=== PATIENT | female | born 1990 | race Two or more races ===

== ENCOUNTER 2023-01-20 14:47 | Emergency (ER) | payer BC, OTHER ==
[~2023-01-20] VITALS: Ht 170.2 cm; Wt 72.8 kg
[2023-01-20 15:44] LABS: Urine Bacteria NONE SEEN /hpf (None Seen); Urine Blood Negative /uL (Negative); Urine Specific Gravity 1.004 (1.001-1.035); Urine WBC <1 /hpf (0 - 5)
[2023-01-20 15:53] LABS: Basophils # (auto) 0.1 10 ^3/uL (0-0.2); Basophils % (auto) 0.8 % (0.0-2.0); Eosinophils # (auto) 0.1 10 ^3/uL (0-0.8); Eosinophils % (auto) 2.1 % (0.0-7.0); Hematocrit 43.7 % (36.0-46.0); Hemoglobin 14.8 g/dL (12.2-16.2); Lymphocytes # (auto) 2.6 10 ^3/uL (0.4-5.4); Lymphocytes % (auto) 37.2 % (10.0-50.0); Mean Corpuscular Hemoglobin 30.1 pg (28.0-32.0); Mean Corpuscular Hgb Conc. 33.8 g/dL (32.0-36.0); Mean Corpuscular Volume 89.1 fL (80.0-100.0); Monocytes # (auto) 0.3 10 ^3/uL (0-1.3); Monocytes % (auto) 4.7 % (0.0-12.0); Neutrophils # (auto) 3.9 10 ^3/uL (1.6-8.6); Neutrophils % (auto) 55.2 % (37.0-80.0); Nucleated Red Blood Cells % 0.2 %; Red Cell Distribution Width 12.7 % (11.8-14.3)
[2023-01-20 15:59] LABS: Calcium 8.7 mg/dL (8.5-10.1); Potassium 4.4 mmol/L (3.5-5.1)
[2023-01-20 16:03] LABS: BUN/Creatinine Ratio 16.7 (10.0-20.0); Bilirubin, Total 0.2 mg/dL (0.2-1.0); Total Protein 7.2 g/dL (6.4-8.2)
[2023-01-20] MEDS ORDERED: IOHEXOL 300 MG/ML 100ML BOTTLE IJ ONE (16:28)
[2023-01-20] MEDS ORDERED: SODIUM CHLORIDE 0.9% 1,000 ML IV ONE (18:45)
[2023-01-20] MEDS ORDERED: PANTOPRAZOLE 40 MG/10 ML VIAL INJ IV ONE (18:45)
[2023-01-20 21:19] LABS: Basophils # (auto) 0 10 ^3/uL (0-0.2); Basophils % (auto) 0.5 % (0.0-2.0); Eosinophils # (auto) 0.2 10 ^3/uL (0-0.8); Eosinophils % (auto) 2.1 % (0.0-7.0); Hemoglobin 14.4 g/dL (12.2-16.2); Lymphocytes % (auto) 36.6 % (10.0-50.0); Mean Corpuscular Hemoglobin 29.6 pg (28.0-32.0); Mean Corpuscular Hgb Conc. 33.6 g/dL (32.0-36.0); Mean Corpuscular Volume 88.3 fL (80.0-100.0); Monocytes # (auto) 0.4 10 ^3/uL (0-1.3); Monocytes % (auto) 5.1 % (0.0-12.0); Neutrophils # (auto) 4.5 10 ^3/uL (1.6-8.6); Neutrophils % (auto) 55.7 % (37.0-80.0); Nucleated Red Blood Cells % 0.1 %; Red Blood Cells 4.87 10^6/uL (4.0-5.20); Red Cell Distribution Width 12.6 % (11.8-14.3); White Blood Cell 8.1 10^3/uL (4.4-10.8)
[2023-01-20 22:33] VITALS: BP 121/64
== END 2023-01-20 22:34 | disposition home or self-care (01) ==
LOC: ER 14:47
DX: K92.1 Melena (principal); R10.2 Pelvic and perineal pain
CPT/HCPCS: 36415; 74177; 80053; 81001; 81025; 82270; 83605; 83690; 84702; 85025; 85048; 86850; 86900; 86901; 93005; 96361; 96374; 99285; C9113; J7030; Q9967

== ENCOUNTER 2023-09-12 04:29 | Emergency (ER) | payer BC ==
[~2023-09-12] VITALS: Ht 170.2 cm; Wt 70.4 kg
[2023-09-12 04:40] VITALS: BP 123/57; PULSE 98; TEMP 98.2
[2023-09-12] MEDS ORDERED: ALBUTEROL SULF 2.5 MG/0.5ML(0.5%) NEB SOLN NEB ONE (05:00)
[2023-09-12] MEDS ORDERED: IPRATROPIUM BROM 0.5 MG/2.5ML INH SOL NEB ONE (05:00)
[2023-09-12] MEDS ORDERED: AMOXICILLIN/CLAVUL 875 MG TAB PO ONE (05:00)
[2023-09-12] MEDS ORDERED: guaiFENesin-CODEINE Liq 5 ML UD PO ONE (05:00)
[2023-09-12] MEDS ORDERED: DexAMETHasone SOD PHOS 10MG/1ML VIAL INJ IM ONE (05:00)
[2023-09-12 05:02] VITALS: RESP 20; O2SAT 98
[2023-09-12] MEDS ORDERED: AUG875T PO (05:06)
[2023-09-12] MEDS ORDERED: BENZ200C64 PO (05:06)
[2023-09-12] MEDS ORDERED: FLUT1SPR5 (05:06)
[2023-09-12] MEDS ORDERED: OFL50TS OT (05:06)
[2023-09-12] MEDS ORDERED: PRED20TA2 PO (05:06)
[2023-09-12] MEDS ORDERED: ALBU108A5 IN (05:06)
[2023-09-12] MEDS ORDERED: IBUPROFEN 800 MG TAB PO ONE (06:30)
== END 2023-09-12 06:35 | disposition home or self-care (01) ==
LOC: ER 04:29
DX: J20.9 Acute bronchitis, unspecified (principal); J32.8 Other chronic sinusitis; H66.92 Otitis media, unspecified, left ear; Z20.822 Contact with and (suspected) exposure to COVID-19; Z79.899 Other long term (current) drug therapy
CPT/HCPCS: 94640; 96372; 99283; J1100; J7644